=== PATIENT | male | born 1990 ===

== ENCOUNTER 2019-06-04 08:47 | Emergency (ER) | payer SELFPAY ==
--- NOTE | 2019-06-04 10:52 | UC ---
Dental HPI - HPI Summary HPI Summary: SEVERAL DAYS OF RIGHT LOWER DENTAL PAIN. HAS A HISTORY OF A DECAYING BACK MOLAR. STATES HE HAD AN ABSCESS AND POPPED IT YESTERDAY. IT DRAINED BLOOD AND PUS AND NOW THE PAIN IS MUCH IMPROVED. NO FEVER. NO DENTIST. IS CONCERNED ABOUT PERSISTENT RIGHT FACIAL SWELLING. - History of Current Complaint Chief Complaint: UCDentalProblem Stated Complaint: DENTAL COMPLAINT Time Seen by Provider: 06/04/19 10:13 Hx Obtained From: Patient Onset/Duration: Gradual Onset, Lasting Days, Still Present Severity: Moderate Pain Intensity: 0 Pain Scale Used: 0-10 Numeric Aggravating Factor(s): Chewing Related History: Discharge, Swelling - Allergies/Home Medications Allergies/Adverse Reactions: Allergies Allergy/AdvReac Type Severity Reaction Status Date / Time amoxicillin Allergy Rash Verified 06/04/19 09:04 Penicillins Allergy Rash Verified 06/04/19 09:04 Home Medications: Home Medications Ibuprofen TAB* [Advil TAB*] 800 mg PO ONCE PRN 06/04/19 [History Confirmed 06/04] Oragel 06/04/19 [History] PMH/Surg Hx/FS Hx/Imm Hx Previously Healthy: Yes - Surgical History Surgical History: Yes Surgery Procedure, Year, and Place: left pinky finger repair s/p fracture - Family History Known Family History: Positive: Non-Contributory - Social History Alcohol Use: Daily Alcohol Amount: 2-3 drinks per day Substance Use Type: None Smoking Status (MU): Heavy Every Day Tobacco Smoker Type: Cigarettes Amount Used/How Often: 1-1.5 PPD Review of Systems All Other Systems Reviewed And Are Negative: Yes Constitutional: Positive: Negative ENT: Positive: Dental Pain Respiratory: Positive: Negative Cardiovascular: Positive: Negative Gastrointestinal: Positive: Negative Physical Exam Triage Information Reviewed: Yes Appearance: Well-Appearing, No Pain Distress, Well-Nourished Vital Signs: Initial Vital Signs Temp 99.4 F 06/04/19 08:56 Pulse 105 06/04/19 08:56 Resp 16 06/04/19 08:56 BP 143/90 06/04/19 08:56 Pulse Ox 99 06/04/19 08:56 Vital Signs Reviewed: Yes Eyes: Positive: Conjunctiva Clear ENT: Positive: Hearing grossly normal, Pharynx normal Dental: Positive: Gross Decay/Caries @ - #31. Negative: Cervical Lymphadenopathy Neck: Positive: Supple, Nontender, No Lymphadenopathy Respiratory: Positive: No respiratory distress, No accessory muscle use Cardiovascular: Positive: Pulses Normal Abdomen Description: Positive: Soft Musculoskeletal: Positive: No Edema Neurological: Positive: Alert Psychological: Positive: Age Appropriate Behavior Skin: Negative: Rashes Dental Complaint Course/Dx - Course Course Of Treatment: PATIENT WITH SEVERE DENTAL DECAY TOOTH #31 WHICH LIKELY RESULTED IN AN ABSCESS WHICH DRAINED AT HOME YESTERDAY. WILL COVER PATIENT WITH ANTIBIOTICS AND HAVE STRONGLY ENCOURAGED HIM TO FOLLOW UP WITH A DENTIST CHRISTINE. - Differential Dx/Diagnosis Provider Diagnosis: Dental abscess Discharge ED - Sign-Out/Discharge Documenting (check all that apply): Patient Departure All imaging exams completed and their final reports reviewed: No Studies - Discharge Plan Condition: Stable Disposition: HOME Prescriptions: Chlorhexidine MW 0.12% 473ML* [Peridex Mouth Wash 0.12%*] 15 ml SWISH SPIT BID # 1 bottle Clindamycin HCl 300 mg PO TID #30 capsule Patient Education Materials: Dental Abscess (ED) Referrals: [facility] [Outside] - If Needed Additional Instructions: TAKE THE ANTIBIOTICS FOR THE FULL COURSE. RINSE YOUR MOUTH WITH WATER AFTER EATING OR DRINKING ANYTHING. ANTISEPTIC MOUTH RINSE TWICE DAILY. TAKE IBUPROFEN NEEDED FOR PAIN, HYDROCODONE FOR BREAKTHROUGH.. FOLLOW-UP WITH A DENTIST CHRISTINE. IBUPROFEN MAX DOSE: 600MG (3 TABS) EVERY 6 HRS OR 800MG (4 TABS) EVERY 8 HRS OR NAPROXEN MAX DOSE: 440MG (2 TABS) EVERY 12 HRS TYLENOL MAX DOSE: 1000MG (2 EXTRA STRENGTH TABS) EVERY 8 HRS OR 650MG (2 REGULAR TABS) EVERY 6 HRS [facility] Dentist Office [address], [place] [address] Zacarias Copeland, [address] [address], [place] [address] Terence Rivas D.D.S. [address], [place], [place] [id number] Opens at 8am CALL THE NUMBER BELOW FOR ASSISTANCE IN ESTABLISHING WITH A PCP An additional resource available to assist in finding the appropriate physician for your health care needs is [facility] ([facility]). You may contact them by calling [phone]. - Billing Disposition and Condition Condition: STABLE Disposition: Home
== END 2019-06-04 10:57 | disposition home or self-care (01) ==
LOC: UCEAST 08:47
DX: K04.7 Periapical abscess without sinus (principal); F17.210 Nicotine dependence, cigarettes, uncomplicated
CPT/HCPCS: 99202; G0463